=== PATIENT | female | born 1985 | race Caucasian/White ===

== ENCOUNTER 2024-06-20 19:54 | Outpatient (REF) | payer OTHER, MEDICAID, SELFPAY ==
[2024-06-20 19:07] LABS: Abs Immature Grans 0.01 10^3/uL (0.0-0.06); Absolute Basophil Count 0.06 10^3/uL (0.0-0.2); Absolute Eosinophil Count 0.19 10^3/uL (0.0-0.7); Absolute Lymphocyte Count 2.07 10^3/uL (1.2-3.4); Absolute Monocyte Count 0.32 10^3/uL (0.1-0.8); Absolute Neutrophil Count 3.62 10^3/uL (1.2-6.7); HCT 42.5 % (36.0-46.0); Immature Grans % 0.2 %; MCH 30.8 pg (27.0-33.0); MCHC 35.3 % (32.0-36.0); MCV 87 fL (80-95); MPV 9.9 fL (8.0-11.0); Monocytes % 5.1 %; Neutrophils % 57.7 %; Platelet Count 327 10^3/uL (130-400); RBC 4.87 10^6/uL (3.93-5.22); RDW 11.8 % (11.7-14.6); RDW-SD 37.4 fL; WBC 6.27 10^3/uL (4.4-10.8)
[2024-06-20 19:15] LABS: Iron 93 ug/dL (50-170); Total Iron Binding Capacity 345 ug/dL (250-450); Transferrin Sat 27 % (15-50)
[2024-06-20 19:46] LABS: ALT 28 U/L (14-59); AST 21 U/L (15-37); Alkaline Phosphatase 74 U/L (46-116); Anion Gap 7.7 mmol/L (3-11); BUN 11 mg/dL (7-18); Bilirubin, Total 0.48 mg/dL (0.2-1.0); CO2 29.3 mmol/L (21.0-32.0); CREATININE 0.9 mg/dL (0.55-1.02); Calcium 8.8 mg/dL (8.5-10.1); Calculated LDL 117 mg/dL (<100); Chloride 104 mmol/L (98-107); Cholesterol 185 mg/dL (<200); Estimated GFR 83.92 (mL/min/1.73m2); Ferritin 38 ng/mL (8-252); Folate 16.3 ng/mL (8.6-20.0); Glucose 91 mg/dL (74-106); HDL Cholesterol 43 mg/dL (40-60); Magnesium 2.1 mg/dL (1.8-2.4); Potassium 4.1 mmol/L (3.5-5.1); Sodium 141 mmol/L (136-145); TSH (W/Ref FT4) 0.95 uIU/mL (0.36-3.74); Total Protein 7.7 g/dL (6.4-8.2); Triglyceride 125 mg/dL (<150); Vitamin B12 619 pg/mL (193-986); Vitamin D 25 Total 27.4 ng/mL (30-100)
--- OUTSIDE RECORDS SUMMARY | 2024-06-20 19:56 | XMS_ITS | Data Portability ---
Author Organization [facility] Address [address] [place] [address] Assessment Encounter Date Assessment Date Assessment LastModified by Organization Details LastModified Time 06/20/2024 06/20/2024 The patient presents with multiple complaints including hair loss, fatigue, lightheadednes s, easy bruising, and low libido. Considering her family history of various cancers referral will be placed to [facility] genetics [email or web address] Not available 06/20/2024 10:37:21 Plan of Treatment Reminders Order Date Submit Date Provider Last Modified By Organization Details Last Modified Time Details Appointments New Patient 60 2023 08:40A M Not available Not available Not available Follow Up 30 2023 09:00A M Not available Not available Not available Lab CMP, serum or plasma 2023 024 [facility] (Registration ), [address] [place] [address] [place] [facility] [place], [address], 06/20/2024 19:53:10 magnesium , serum or plasma 2023 024 [facility] (Registration ), [address] [place] [address] [place] [facility] [place], [address], 06/20/2024 10:05:21 lipid panel, serum 2023 024 [facility] (Registration ), [address] [place] [address] [place], [address], 06/20/2024 10:05:22 CBC w/ auto diff 2023 024 [facility] [address] [place] [address] [place], [address], 06/20/2024 19:10:58 iron + TIBC + ferritin, serum [facility] [address] [place] [address] [place], [address], 06/20/2024 10:05:22 vitamin B12 + folate, serum or blood [facility] [address] [place] [address] [place], [address], 06/20/2024 10:05:20 vitamin D, 25-hydrox y, total, serum 2023 [facility] (Registration ), [address] [place] [address] [place], [address], 06/20/2024 19:53:12 TSH, serum, reflex free T4 2023 [facility] (Registration ), [address] [place] [address] [place], [address], 06/20/2024 10:01:00 hepatitis C virus Ab, serum 2023 [facility] (Registration ), [address] [place] [address] [place], [address], 06/20/2024 10:05:22 HbA1c (hemoglob in A1c), blood 2023 024 [facility] (Registration ), [address] [place] [address] [place], [address], 06/20/2024 10:05:22 HIV (1+2) Ab screen, serum 2023 [facility] (Registration ), [address] [place] [address] [place], [address], 06/20/2024 10:05:22 Referral genetics referral 2023 024 [email or web address] [facility] F[facility] Genetic Counseling, [facility] , [facility], [place], [address], 06/20/2024 11:39:51 Procedures None recorded. Surgeries None recorded. Imaging None recorded. Medication Orders None recorded. Patient TargetsNo targets recorded. Patient Instructions Encounter Date Encounter Id Patient Instructions Last Modified By Organization Details Last Modified Time 06/20/2024 wean off caffein e continue to drink plenty of water eat small frequent meals throughout the day- hard boiled eggs, romansh muffin with PB (bertha bread, whole grain), almonds, baby carrots, grape tomatoes, cut up apple/cucumbers/f ruits/vegetables, rxbars The probiotic can be either a supplement or through foods such as kombucha, kaveh chi, sauerkraut, probiotic juice shots netflix- hack your health the secret to gut health tubi- fed up You had blood work done today. Please allow up to 2 weeks to hear about results. A referral has been placed for {{Allergy Audiolo gy Bariatric Card iology Colonoscop y [facility] ENT Janelle roenterology Gene ral Surgery Genetics* Hematology/Oncol ogy Nephrology Ne urology REPROGRAPHICS TECHNICIAN Op tometry/Ophthalmo logy Orthopedics Pain Clinic Physical Therapy Podiatry Psychiatry Pulmon ology Rheumatolog y Sleep Clinic Spine Clinic Urology Va scular Surgery}} at {{[facility] ([facility] ([facility] ([facility] ([facility]) [facility] ([facility]) [facility] ([facility]) [facility]}}. If you do not receive a call to schedule an appointment in 7-10 days, please contact our humanities coordinator at [facility] if you are due [facility] pap smear Call with any questions or concerns [email or web address] Not available 06/20/2024 09:12:44 Reason for Referral Genetics Referral for Family history of cancer of colon Referring Physician: Judi Raines, Family Medicine, Encounter Date: 06/20/2024 Problems Name Status Onset Date Resolution Date Notes Provider Name and Address Organization Details Recorded Time History of anxiety state Active 06/20/[address], [facility] [address] , [facility] 06/20/2024 08:57:03 Family history of malignant neoplasm of skin Active 06/20/20 24 father unknown type [address], [facility] [address] , [facility] 06/20/2024 10:38:50 Family history of cancer of colon Active 06/20/20 24 mom dxd age [address], [facility] [address] , [facility] 06/20/2024 10:41:14 Family history of malignant neoplasm of lung Active 06/20/20 24 Paternal GF, smoker [address], [facility] [address] , [facility] 06/20/2024 10:41:06 Family history of malignant neoplasm of pancreas Active 06/20/20 [address], [facility] [address] , [facility] 06/20/2024 10:40:54 Problem Notes None recorded. Medical Equipment None Reported. Allergies No known drug allergies Medications Not known to be on any medication Vitals Date Recorded Body height Body mass index (BMI) Body weight Oxygen saturation Oxygen saturation in Arterial blood by Pulse oximetry Heart rate Body temperature Systolic blood pressure Diastolic blood pressure Provider Name and Address Organization Details Last Updated DateTime 4 163.83 cm 28.2 kg/m2 34726.6 g 96 % 96 % 105 /min 97 [degF] 122 mm[Hg] 72 mm[Hg] Jaspreet Villanueva RN [facility] 08:23:58 Social History Question Answer Notes LastModified by Organizat ion Details LastModified Time Tobacco Smoking Status Never Smoker Jaspreet Villanueva RN null, [facility] 06/20/2024 08:32:53 Would You Say That, In General, Your Health Is Fair [email or web address] Information not available 06/20/2024 Women Aged 18-50 - Would You Like To Become In The Next Year? (Female Patients Only) No [email or web address] Information not available 06/20/2024 How Often Does Anyone, Including Family, Physically Hurt You? Never [email or web address] Information not available 06/20/2024 How Often Does Anyone, Including Family, Insult Or Talk Down To You? Never Information no t available 06/20/2024 How Often Does Anyone, Including Family, Threaten You With Harm? Never [email or web address] Information not available 06/20/2024 How Often Does Anyone, Including Family, Scream Or Curse At You? Never [email or web address] Information not available 06/20/2024 Within The Past 12 Months, You Worried That Your Food Would Run Out Before You Got Money To Buy More. Never True [email or web address] Information n ot available 06/20/2024 Within The Past 12 Months, The Food You Bought Just Didn't Last And You Didn't Have Money To Get More. Never True [email or web address] Information not available 06/20/2024 How Hard Is It For You To Pay For The Very Basics Like Food, Housing, Medical Care, And Heating? Would You Say It Is: Not Hard At All [email or web address] Information not available 06/20/2024 In The Past 12 Months, Has Lack Of Reliable Transportation Kept You From Medical Appointments, Meetings, Work Or From Getting Things Needed For Daily Living? No [email or web address] Information not available 06/20/2024 What Is Your Housing Situation Today? I Have Housing. [email or web address] Information not available 06/20/2024 How Often In The Past Year Have You Used Marijuana (including Smoking, Vaping, Dabbing, Or Edibles)? Never Information not available 06/20/2024 How Often In The Past Year Have You Used Prescription Medications That Were Not Prescribed To You? Never [email or web address] Information not available 06/20/2024 How Often In The Past Year Have You Taken Your Own Prescription Medication More Than The Way It Was Prescribed Or For Different Reasons Than Its Intended Purpose? Never [email or web address] Information not available 06/20/2024 How Often In The Past Year Have You Used Other Drugs (for Example, Heroin, Cocaine, Meth, Salvia, Inhalants)? Never [email or web address] Information not available 06/20/2024 Have You Ever Used IV Drugs? No [email or web address] Information not available 06/20/2024 Date Of Most Recent SBINS 06/20/2024 [email or web address] Information not available 06/20/2024 What Was The Date Of Your Most Recent Tobacco Screening? 06/20/2024 Information n ot available 06/20/2024 Has Tobacco Cessation Counseling Been Provided? No [email or web address] Information not available 06/20/2024 Do You Or Have You Ever Used Any Other Forms Of Tobacco Or Nicotine? No [email or web address] Information not available 06/20/2024 Sex: Unknown Functional Status None recorded. Mental Status None recorded. Family History Relationship Description Onset Age of this Age Resolved Age Notes Maternal Grandmother Cardiac complication unknown heart issues Father Malignant neoplasm of skin 71 Mother Malignant tumor of colon 61 Paternal Grandfather Malignant tumor of lung Paternal Grandmother Malignant tumor of pancreas Maternal Aunt Malignant tumor of thyroid gland Notes:no fhx of [place], [place]. no b reast, uterine or ovarian cancer Medical History No medical history recorded. Gynecological HistoryNo gynecological history recorded. Obstetrics History GPAL:G 0 P 0 0 0 0 Immunizations Vaccine Type Date Status Provider Name and Address Organization Details Recorded Time DTaP, unspecified formulation 1986 CESARIO Dhaliwal, [facility] 06/18/2024 10:44:34 DTaP, unspecified formulation 1986 CESARIO Dhaliwal, [facility] 06/18/2024 10:44:46 DTaP, unspecified formulation 1986 CESARIO Dhaliwal, [facility] 06/18/2024 10:45:00 DTaP, unspecified formulation 08/31/1987 CESARIO Dhaliwal, [facility] 06/18/2024 10:45:14 MMR 08/31/1987 completed CESARIO King, [facility] 06/18/2024 10:46:11 MMR 08/24/1998 completed CESARIO King, [facility] 06/18/2024 10:46:28 Td(adult) unspecified formulation 10/08/1998 completed CESARIO King, [facility] 06/18/2024 10:47:40 Tdap 10/22/2017 completed CESARIO King, [facility] 06/18/2024 10:48:01 Hep B, unspecified formulation 01/01/1997 completed CESARIO King, [facility] 06/18/2024 10:48:22 Hep B, unspecified formulation 02/23/1997 completed CESARIO King, [facility] 06/18/2024 10:48:36 Past Encounters Encounter ID Performer Location Encounter Start Date Encounter Closed Date Diagnosis/Indication Diagnosis SNOMED-CT Code [id number] JUDI RAINES PA-C [address] [address] 06/20/2024 08:01:06 06/20/2024 09:51:34 Loss of hair 836422401 Fatigue 91450815 Lightheadedness 80058496 8 Easy bruising 268455146 Hyperlipid emia screening 935637625 Diabetes m ellitus screening 309946412 Hepatitis C screening 41 1661324 HIV screening 743664992 Reduced libido 6388189 Family his tory of malignant neoplasm of skin 780802559 Family his tory of cancer of colon 589759924 Family his tory of malignant neoplasm of lung 578725233 Family his tory of malignant neoplasm of pancreas 820947455 Screening for malignant neoplasm of cervix 708412651 Health Concerns Section Related Observation LastModified by Organization Detai ls LastModified Time None Recorded Concern Status LastModified by Organization Details LastModified Time None Recorded Advance Directives Directive None Recorded Payers Encounter Date Sequence Insurance Name Policy Number Policy Jean Covered Member ID Jean Member ID Guarantor Name 06/20/2024 1 [facility] ([facility] [place] Ena Simth [id number] Ena Smith Notes Date Note Type Note Provider Name and Address Organization Details Recorded Time 06/20/2024 text/html HPI Notes: Easton hoyt presents to [facility] and with hair loss, fatigue, lightheadedness, easy bruising, and low libido. Patient is a 39-year-old female who presents with hair loss, noting that it has been occurring for over a year and has worsened in the past six months. No prior treatments have been attempted for this issue. The patient also complains of fatigue, which has been progressively worsening over the past year and a half. she has also been struggling with irritability She experiences occasional lightheadedness and has noticed easy bruising. Additionally, she reports a recent loss of libido. She mentioned her thyroid was in the low normal range 6-7 years ago but did not require medication. hx of anxiety was on medication in the past. she feels it is now well managed without medication. denies SI or HI. - Tetanus vaccine up-to-date - Immunizations appear up-to-date - Pap smear- pt thinks was done a couple years ago. no hx of abnormals. - Father with skin cancer, type unknown - Mother with colon cancer at age 61 - Paternal grandfather with lung cancer - Paternal grandmother with pancreatic cancer - Maternal aunt with thyroid cancer - Maternal grandmother with cardiac complications, details unknown - Patient works as a calibration technician at [employer] - Non-smoker - Consumes energy drinks, up to [address], [place], [address], [place] [facility]. 06/20/2024 10:47:09 OBGyn Episode No OBEpisode recorded.
--- OUTSIDE RECORDS SUMMARY | 2024-06-20 19:56 | XMS_ITS | Continuity of Care Document ---
Author Organization [facility] Address [address] [place] [address] Assessment Encounter Date Assessment Date Assessment LastModified by Organization Details LastModified Time 06/20/2024 06/20/2024 The patient presents with multiple complaints including hair loss, fatigue, lightheadednes s, easy bruising, and low libido. Considering her family history of various cancers referral will be placed to [facility] genetics [email or web address] Not available 06/20/2024 10:37:21 Plan of Treatment Reminders Order Date Submit Date Provider Last Modified By Organization Details Last Modified Time Details Appointments New Patient 60 2023 08:40A M Not available Not available Not available Follow Up 30 2023 09:00A M Not available Not available Not available Lab CMP, serum or plasma 2023 024 [facility] (Registration ), [address] [place] [address] [place], [address], 06/20/2024 19:53:10 magnesium , serum or plasma 2023 024 [facility] (Registration ), [address] [place] [address] [place], [address], 06/20/2024 10:05:21 lipid panel, serum 2023 024 [facility] (Registration ), [address] [place] [address] [place], [address], 06/20/2024 10:05:22 CBC w/ auto diff [facility] [address] [place] [address] [place], [address], 06/20/2024 19:10:58 iron + TIBC + ferritin, serum [facility] [address] [place] [address] [place], [address], 06/20/2024 10:05:22 vitamin B12 + folate, serum or blood [facility] [address] [place] [address] [place], [address], 06/20/2024 10:05:20 vitamin D, 25-hydrox y, total, serum 2023 [facility] (Registration ), [address] [place] [address] [place], [address], 06/20/2024 19:53:12 TSH, serum, reflex free T4 2023 [facility] (Registration ), [address] [place] [address] [place], [address], 06/20/2024 10:01:00 hepatitis C virus Ab, serum 2023 [facility] (Registration ), [address] [place] [address] [place], [address], 06/20/2024 10:05:22 HbA1c (hemoglob in A1c), blood 2023 [facility] (Registration ), [address] [place] [address] [place], [address], 06/20/2024 10:05:22 HIV (1+2) Ab screen, serum 2023 [facility] (Registration ), [address] [place] [address] [place], [address], 06/20/2024 10:05:22 Referral genetics referral 2023 024 [email or web address] [facility] Familial Cancer [facility] Genetic Counseling, [facility] , [facility], [place], [address], 06/20/2024 11:39:51 Procedures None recorded. Surgeries None recorded. Imaging None recorded. Medication Orders None recorded. Patient TargetsNo targets recorded. Patient Instructions Encounter Date Encounter Id Patient Instructions Last Modified By Organization Details Last Modified Time 06/20/2024 wean off caffein e continue to drink plenty of water eat small frequent meals throughout the day- hard boiled eggs, italian muffin with PB (bertha bread, whole grain), [...] Audiolo gy Bariatric Card iology Colonoscop y Director [employer] Database Endoc rinology ENT Janelle roenterology Gene ral Surgery Genetics* Hematology/Oncol ogy Nephrology Ne urology EMERGENCY DEPARTMENT PHYSICIAN Op tometry/Ophthalmo logy Orthopedics Pain Clinic Physical Therapy Podiatry Psychiatry Pulmon ology Rheumatolog y Sleep Clinic Spine Clinic Urology Va scular Surgery}} at {{[facility] ([facility] ([facility])* [facility] ([facility]) [facility] ([facility]) [facility] ([facility]) [facility]}}. If you do not receive a call to schedule an appointment in 7-10 days, please contact our lean manufacturing coordinator at [facility] [...] state Active 06/20/[address], [facility] [address] , [facility] 06/20/2024 08:57:03 Family history of malignant neoplasm of skin Active 06/20/20 24 father unknown type [address], [facility] [address] , [facility] 06/20/2024 10:38:50 Family history of cancer of colon Active 06/20/20 24 mom dxd age [address], [facility] [address] , [facility] 06/20/2024 10:41:14 Family history of malignant neoplasm of lung Active 06/20/20 24 Paternal GF, smoker [address], [facility] [address] , [facility] 06/20/2024 10:41:06 Family history of malignant neoplasm of pancreas Active 06/20/20 [address], [facility] [address] , [facility] 06/20/2024 10:40:54 Problem Notes None recorded. Medical Equipment None Reported. Allergies No known drug allergies Medications Not known to be on any medication Vitals Date Recorded Body height Body mass index (BMI) Body weight Oxygen saturation Oxygen saturation in Arterial blood by Pulse oximetry Heart rate Body temperature Systolic blood pressure Diastolic blood pressure Provider Name and Address Organization Details Last Updated DateTime 163.83 cm 28.2 kg/m2 35978.6 g 96 % 96 % 105 /min 97 [degF] 122 mm[Hg] 72 mm[Hg] Jaspreet Villanueva RN [facility] 08:23:58 Social History Question Answer Notes LastModified by Organizat ion Details LastModified Time Tobacco Smoking Status Never Smoker Jaspreet Villanueva RN null, [facility] 06/20/2024 08:32:53 Would You Say That, In General, Your Health Is Fair Information not available 06/20/2024 Women Aged 18-50 - Would You Like To Become In The Next Year? (Female Patients Only) No Information not available 06/20/2024 How Often Does Anyone, Including Family, Physically Hurt You? Never [email or web address] Information not available 06/20/2024 How Often Does Anyone, Including Family, Insult Or Talk Down To You? Never [email or web address] Information no t available 06/20/2024 How Often Does Anyone, Including Family, Threaten You With Harm? Never Information not available 06/20/2024 How Often Does Anyone, Including Family, Scream Or Curse At You? Never Information not available 06/20/2024 Within The Past 12 Months, You Worried That Your Food Would Run Out Before You Got Money To Buy More. Never True [email or web address] Information n ot available 06/20/2024 Within The Past 12 Months, The Food You Bought Just Didn't Last And You Didn't Have Money To Get More. Never True [email or web address] Information not available 06/20/2024 How Hard Is It For You To Pay For The Very Basics Like Food, Housing, Medical Care, And Heating? Would You Say It Is: Not Hard At All Information not available 06/20/2024 In The Past 12 Months, Has Lack Of Reliable Transportation Kept You From Medical Appointments, Meetings, Work Or From Getting Things Needed For Daily Living? No Information not available 06/20/2024 What Is Your Housing Situation Today? I Have Housing. [email or web address] Information not available 06/20/2024 How Often In The Past Year Have You Used Marijuana (including Smoking, Vaping, Dabbing, Or Edibles)? Never [email or web address] Information not available 06/20/2024 How Often In The Past Year Have You Used Prescription Medications That Were Not Prescribed To You? Never Information not available 06/20/2024 How Often In The Past Year Have You Taken Your Own Prescription Medication More Than The Way It Was Prescribed Or For Different Reasons Than Its Intended Purpose? Never [email or web address] Information not available 06/20/2024 How Often In The Past Year Have You Used Other Drugs (for Example, Heroin, Cocaine, Meth, Salvia, Inhalants)? Never [email or web address] Information not available 06/20/2024 Have You Ever Used IV Drugs? No [email or web address] Information not available 06/20/2024 Date Of Most Recent SBINS 06/20/2024 [email or web address] Information not available 06/20/2024 What Was The Date Of Your Most Recent Tobacco Screening? 06/20/2024 [email or web address] Information n ot available 06/20/2024 Has Tobacco Cessation Counseling Been Provided? No [email or web address] Information not available 06/20/2024 Do You Or Have You Ever Used Any Other Forms Of Tobacco Or Nicotine? No Information not available 06/20/2024 Sex: Unknown Functional [...] tumor of thyroid gland Notes:no fhx of ID, DM. no b reast, uterine or ovarian cancer Medical History No medical history recorded. Gynecological HistoryNo gynecological history recorded. Obstetrics History GPAL:G 0 P 0 0 0 0 Immunizations Vaccine Type Date Status Provider Name and Address Organization Details Recorded Time DTaP, unspecified formulation 1986 CESARIO Dhaliwal, [facility] 06/18/2024 10:44:34 DTaP, unspecified formulation 1986 CESARIO Dhaliwal, [facility] 06/18/2024 10:44:46 DTaP, unspecified formulation 1986 CESARIO Dhaliwal, [facility] 06/18/2024 10:45:00 DTaP, unspecified formulation 08/31/1987 CESARIO Dhaliwal, [facility] 06/18/2024 10:45:14 MMR 08/31/1987 completed CESARIO King, [facility] 06/18/2024 10:46:11 MMR 08/24/1998 completed CESARIO King, [facility] 06/18/2024 10:46:28 Td(adult) unspecified formulation 10/08/1998 completed CESARIO King, [facility] 06/18/2024 10:47:40 Tdap 10/22/2017 completed CESARIO King, [facility] 06/18/2024 10:48:01 Hep B, unspecified formulation 01/01/1997 completed CESARIO King, [facility] 06/18/2024 10:48:22 Hep B, unspecified formulation 02/23/1997 completed CESARIO King, [facility] 06/18/2024 10:48:36 Past Encounters Encounter ID Performer Location Encounter Start Date Encounter Closed Date Diagnosis/Indication Diagnosis SNOMED-CT Code [id number] JUDI RAINES PA-C [address] [address] 06/20/2024 08:01:06 06/20/2024 09:51:34 Loss of hair 057071372 Fatigue 49013372 Lightheadedness 11428646 8 Easy bruising 666574674 Hyperlipid emia screening 822446590 Diabetes m ellitus screening 804924251 Hepatitis C screening 41 1562184 HIV screening 688964274 Reduced libido [id number] Family his tory of malignant neoplasm of skin 478189407 Family his tory of cancer of colon 585782914 Family his tory of malignant neoplasm of lung 363094242 Family his tory of malignant neoplasm of pancreas 572159438 Screening for malignant neoplasm of cervix 943260136 Health Concerns Section Related Observation LastModified by Organization Detai ls LastModified Time None Recorded Concern Status LastModified by Organization Details LastModified Time None Recorded Payers Encounter Date Sequence Insurance Name Policy Number Policy Jean Covered Member ID Jean Member ID Guarantor Name 06/20/2024 1 [facility] ([facility] Ena Smith [id number] Ena Smith Notes Date Note Type Note Provider Name and Address Organization Details Recorded Time 06/20/2024 text/html HPI Notes: Easton hoyt presents to [facility] care and with hair loss, fatigue, lightheadedness, easy [...] details unknown - 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 06/20/2024 10:47:09 OBGyn Episode No OBEpisode recorded.
[2024-06-22 12:51] LABS: HIV-1/2 Ag & Ab Screen Negative (Negative)
[2024-06-23 11:13] LABS: Hepatitis C Ab w Rflx HCV PCR Negative (Negative)
== END 2024-06-20 19:55 | disposition home or self-care (01) ==
LOC: NCHCN 19:54
PROVIDERS: PCP Nurse Practitioner Family; Visit Provider Physician Assistant
DX: L65.9 Nonscarring hair loss, unspecified (principal); Z13.1 Encounter for screening for diabetes mellitus; Z11.59 Encounter for screening for other viral diseases; Z11.4 Encounter for screening for human immunodeficiency virus [HIV]; R58 Hemorrhage, not elsewhere classified
CPT/HCPCS: 80053; 80061; 82306; 86803; 87389; 82607; 82728; 82746; 83036; 83540; 83550; 83735; 84443; 85025